=== PATIENT | male | born 1970 | race Two or more races ===

== ENCOUNTER → 2020-05-15 | Day surgery (SDC) | payer OTHER ==
[~2020-05-15] VITALS: Ht 188 cm; Wt 74.8 kg
[2020-05-15] VITALS (8 sets, daily range): BP systolic 98–110; BP diastolic 59–69
[~2020-05-15] MED LIST: LR 1000ml 1,000 ML IVLG SCH; Midazolam 2mg/2ml Inj ONE; fentaNYL 100 mcg/2 mL IV PRN
--- NOTE | 2020-05-15 09:20 | Anethesia Preoperative Eval ---
Anesthesia Pre-op PMH/ROS General Date of Evaluation: May 15, 2020 Time of Evaluation: 09:18 Anesthesiologist: Christopher ASA Score: ASA 2 Mallampati Score Class I : Soft palate, uvula, fauces, pillars visible Class II: Soft palate, uvula, fauces visible Class III: Soft palate, base of uvula visible Class IV: Only hard plate visible Mallampati Classification: Class II Surgeon: Markus Diagnosis: Colon CA screening Surgical Procedure: Colonoscopy Anesthesia History: none Family History: no anesthesia problems Allergies: Coded Allergies: No Known Allergies (Unverified , 05/12/20) Medications: see eMAR Patient NPO?: Yes Past Medical History Cardiovascular: Denies: HTN, CAD, ID, valve dz, arrhythmia, other Pulmonary: Denies: asthma, COPD, MYKEL, other Gastrointestinal/Genitourinary: Reports: GERD; Denies: CRI, ESRD, other Neurologic/Psychiatric: Denies: dementia, CVA, depression/anxiety, TIA, other Endocrine: Denies: DM, hypothyroidism, steroids, other HEENT: Denies: cataract (L), cataract (R), glaucoma, KLUTI KAAH (L), KLUTI KAAH (R), other Hematology/Immune: Denies: anemia, DVT, bleeding disorder, other Musculoskeletal/Integumentary: Denies: OA, RA, DJD, DDD, edema, other PMH Narrative: as above PSxH Narrative: Dental Sx Anesthesia Pre-op Phys. Exam Physician Exam Last Vital Signs Date Time Temp Pulse Resp B/P (MAP) Pulse Ox O2 Delivery O2 Flow Rate FiO2 05/15/20 08:56 Room Air 05/15/20 08:56 97.6 75 18 106/60 98 Constitutional: NAD Neurologic: CN 2-12 intact Cardiovascular: RRR, no M/R/G Respiratory: CTA Gastrointestinal: S/NT/ND Airway Exam Mallampati Score: Class II MO: full Neck: flexible ROM: full Teeth: intact Dentures: no upper, no lower Anesthesia Pre-op A/P Risk Assessment & Plan Assessment: ASA 2 Plan: Иван Renae MD May 15, 2020 09:20
--- NOTE | 2020-05-15 10:06 | Pre-Procedure Note/Attestation ---
Pre-Procedure Note/Attestation Complete Prior to Procedure Planned Procedure: not applicable Procedure Narrative: colon Indications for Procedure Pre-Operative Diagnosis: screening Attestation I attest that I discussed the nature of the procedure; its benefits; risks and complications; and alternatives (and the risks and benefits of such alternatives), prior to the procedure, with the patient (or the patient's legal special service representative). I attest that, if there was a reasonable possibility of needing a blood transfusion, the patient (or the patient's legal special service representative) was given the [facility] standardized written summary, pursuant to the [place] Blood Safety Act ([place] [facility] and Safety Code # 1645, as amended). I attest that I re-evaluated the patient just prior to the surgery and that there has been no change in the patient's H&P, except as documented below: Familia Madsen MD May 15, 2020 10:06
--- NOTE | 2020-05-15 10:06 | Short Stay Surgery H&P ---
History of Present Illness History of Present Illness Chief Complaint see attached H&P HPI Dago Wadsworth is a 49 year old male who was admitted on for Screening Patient History Allergies: Coded Allergies: No Known Allergies (Unverified , 05/12/20) Medication History No Active Prescriptions or Reported Meds Physical Exam Vital Signs Last Vital Signs Date Time Temp Pulse Resp B/P (MAP) Pulse Ox O2 Delivery O2 Flow Rate FiO2 05/15/20 08:56 Room Air 05/15/20 08:56 97.6 75 18 106/60 98 Plan Attestation Are the patient's medical conditions optimized for surgery? Familia Madsen MD May 15, 2020 10:06
--- NOTE | 2020-05-15 10:32 | Endoscopy Procedure Note ---
Endoscopy Procedure Note General Indication for Procedure: screening Procedures Performed: colonoscopy Operative Findings/Diagnosis: normal Specimen: none Anesthesia Anesthesiologist: Lennox Anesthesia: MAC Inserted Devices Implant(s) used?: No Quality Quality of Bowel Preparation: Excellent Did scope reach the cecum?: Yes GI Core Measures 50 yrs or older w/o bx or poly: Yes 10yrs. F/U recommended: Yes 18 years or older w/prev. colo: No <3yrs. since last colonoscopy: No Med reason:<3 yrs.: System Reason:<3 yrs.: Last colonoscopy >= to 3yrs: Yes Familia Madsen MD May 15, 2020 10:32
--- NOTE | 2020-05-15 10:33 | Brief Operative Note ---
Immediate Post Operative Note Operative Note Chief Complaint: screening Pre-op Diagnosis: screening Specimen: yes Complications: none Fluids: per anesthesia Implant(s) used?: No Familia Madsen MD May 15, 2020 10:33
--- NOTE | 2020-05-15 10:37 | Immediate Post-Op Evaluation ---
Immediate Post-Op Evalulation Immediate Post-Op Evalulation Procedure: Colonoscopy Date of Evaluation: May 15, 2020 Time of Evaluation: 10:36 IV Fluids: 800 Blood Products: none Estimated Blood Loss: none Urinary Output: none Blood Pressure Systolic: 102 Blood Pressure Diastolic: 56 Pulse Rate: 74 Respiratory Rate: 18 O2 Sat by Pulse Oximetry: 99 Temperature (Fahrenheit): 97.5 Pain Score (1-10): 1 Nausea: No Vomiting: No Patient Status: awake, patent, none Hydration Status: adequate Иван White MD May 15, 2020 10:37
--- NOTE | 2020-05-15 11:30 | 48 Hour Post Anesthesia Eval ---
Post Anesthesia Evaluation Procedure: Colonoscopy Date of Evaluation: May 15, 2020 Time of Evaluation: 11:29 Blood Pressure Systolic: 104 0: 56 Pulse Rate: 68 Respiratory Rate: 18 Temperature (Fahrenheit): 97.6 O2 Sat by Pulse Oximetry: 98 Airway: patent Nausea: No Vomiting: No Pain Intensity: 1 Hydration Status: adequate Cardiopulmonary Status: stable Mental Status/LOC: patient returned to baseline Follow-up Care/Observations: n/a Post-Anesthesia Complications: none Follow-up care needed: ready to discharge Иван White MD May 15, 2020 11:30
--- NOTE | 2020-05-15 23:59 | Procedure Note ---
DATE OF PROCEDURE: 05/15/2020 GASTROENTEROLOGY PROCEDURE REPORT PROCEDURE: Colonoscopy. PRE-ENDOSCOPIC DIAGNOSIS: Screening examination. POST-ENDOSCOPIC DIAGNOSIS: Normal colonoscopy. SURGEON: Familia Madsen MD ANESTHESIA: Please see the separate anesthesiologist notes for details. DESCRIPTION OF PROCEDURE: The procedure, its risks, indications, alternatives, and possible complications were explained to the patient and an informed consent was obtained. The patient was then sedated in the left lateral decubitus position and rectal exam was done, which was unremarkable. The colonoscope was then introduced in the rectum and advanced to the cecum without difficulty. The cecum was identified by the appearance of the ileocecal valve. The colonoscope was then gradually withdrawn and mucosa examined carefully. Examination of the colon mucosa did not reveal any polyps or masses or other significant abnormality. Retroflexed view of the rectum was unremarkable. The colonoscope was removed and the patient was sent to recovery in good condition. COMPLICATIONS: None. RECOMMENDATIONS: 1. Follow up with primary physician. 2. Annual stool occult blood testing. 3. Repeat colonoscopy in 10 years. Thank you for asking me to participate in the care of this patient. Familia Madsen M.D. DR: JENNIFER JOB#: [id number] CC: Charbel Osullivan MD
== END | disposition home or self-care (01) ==
LOC: GAS 08:29
DX: Z12.11 Encounter for screening for malignant neoplasm of colon (principal); K21.9 Gastro-esophageal reflux disease without esophagitis
CPT/HCPCS: 45378; J2250; U0004